=== PATIENT | male | born 1960 | race Caucasian/White ===

== ENCOUNTER 2018-01-21 12:10 | Inpatient (IN) | payer MEDICAID ==
[2018-01-21] MEDS ORDERED: Sodium Chloride 0.9% 1,000 ML IV ONE (12:23)
--- NOTE | 2018-01-21 12:23 | ED Physician Chart ---
ED Chief Complaint/HPI - Patient Information Date Seen:: 01/21/18 Time Seen:: 12:10 Chief Complaint:: G-Tube Dysfunction History of Present Illness:: onset x one day of G-Tube Dysfunction; no report of trauma, H/As, S/T, neck pain , C/P, SOB, Abd. Pain, A/N/V/D/C, fever, chills, or urinary s/s Historian:: Patient, EMS Review:: Nurse's Note Reviewed, Old Chart Reviewed, EMS run form Reviewed ED Review of Systems - Review of Systems General/Constitutional: No fever, No chills, No weight loss, Weakness, No diaphoresis, No edema, No loss of appetite Skin: No skin lesions, No rash, No bruising Head: No headache, No light-headedness Eyes: No loss of vision, No pain, No diplopia ENT: No earache, No nasal drainage, No sore throat, No tinnitus Neck: No neck pain, No swelling, No thyromegaly, No stiffness, No mass noted Cardio Vascular: No chest pain, No palpitations, No PND, No orthopnea, No edema Pulmonary: No SOB, No cough, No sputum, No wheezing GI: No nausea, No vomiting, No diarrhea, No pain, No melena, No hematochezia, No constipation, No hematemesis G/U: No dysuria, No frequency, No hematuria, No nacturia Musculoskeletal: No bone or joint pain, No back pain, No muscle pain Endocrine: Polyuria, Polydipsia Psychiatric: No prior psych history, No depression, No anxiety, No suicidal ideation, No homicidal ideation, No auditory hallucination, No visual hallucination Hematopoietic: No bruising, No lymphadenopathy Allergic/Immuno: No urticaria, No angioedema Neurological: No syncope, No focal symptoms, No weakness, No paresthesia, No headache, No seizure, No dizziness, No confusion, No vertigo ED Past Medical History - Past Medical History Obtainable: Yes Past Medical History: HTN, DM, CVA/TIA, Dyslipidemia, PUD/GERD Family History: Diabetes Melitus, HTN Social History: Non Smoker, No Alcohol, No Drug Use, Single, Care Facility Surgical History: PEG/GTube Psychiatricy History: None Medication: Reviewed Family Medical History - Family Member Mother History Unknown: Yes ED Physical Exam - Physical Examination General/Constitutional: Awake, Well-developed, well-nourished, Alert, No distress, GCS 15, Non-toxic appearing, Ambulatory Head: Atraumatic Eyes: Lids, conjuctiva normal, PERRL, EOMI Skin: Nl inspection, No rash, No skin lesions, No ecchymosis, Well hydrated, No lymphadenopathy ENMT: External ears, nose nl, TM canals nl, Nasal exam nl, Lips, teeth, gums nl , Oropharynx nl, Tonsils nl Neck: Nontender, Full ROM w/o pain, No JVD, No nuchal rigidity, No bruit, No mass, No stridor Respiratory: Nl effort/Exclusion, Clear to Auscultation, No Wheeze/Rhonchi/Rales Cardio Vascular: RRR, No murmur, gallop, rubs, NL S1 S2, Carotid/Femoral/Distal pulses equal bilaterally GI: No tenderness/rebounding/guarding, No organomegaly, No hernia, Normal BS's, Nondistended, No mass/bruits, No McBurney tenderness Other GI comments:: + G-Tube Dysfunction : No CVA tenderness Extremities: No tenderness or effusion, Full ROM, normal strength in all extremities, No edema, Normal digits & nails Neuro/Psych: Alert/oriented, DTR's symmetric, Normal sensory exam, Normal motor strength, Judgement/insight normal, Mood normal, Normal gait, No focal deficits Misc: Normal back, No paraspinal tenderness ED Labs/Radiology/EKG Results - Lab Results Comments:: Na+: 132; Glucose: 266 ED Septic Shock - . Is Septic Shock (SBP<90, OR Lactate>4 mmol\L) present?: No ED Reassessment (Disposition) - Diagnosis Diagnosis:: G-Tube Dysfunction; Hyperglycemia; Hyponatremia; DM - Aftercare/Follow up Instructions Aftercare/Follow-Up Instructions:: Counseled pt regarding lab results/diagnosis & need follow up, Counseled pt & family regarding lab results/diagnosis & need follow up - Patient Disposition Discharge/Transfer:: Acute Care w/in this hosp Accepting Physician:: Dr. Valencia Time Called:: 1400 Time Responded:: 14:00 Admitted to:: Med/Surg Spoke to:: Dr. Valencia Admitting Medical Physician:: Dr. Valencia Condition at Disposition:: Stable, Improved
[2018-01-21 12:45] LABS: % BASOPHILS 0.6 % (0.0-2.0); % EOSINOPHILS 1.4 % (0.0-5.0); % LYMPHOCYTES 18.6 % (20.0-50.0); % NEUTROPHILS 74.4 % (40.0-80.0); BASOPHILE ABSOLUTE 0.1 Th/cumm (0-0.2); EOSINOPHILE ABSOLUTE 0.1 Th/cmm (0.1-0.4); HEMATOCRIT 45.7 % (41.0-60); HEMOGLOBIN 15.2 gm/dL (12-16); LYMPHOCYTE ABSOLUTE 1.7 Th/cmm (1.5-3.0); MEAN CORPUSCULAR HEMOGLOBIN 29.7 pg (26.0-30.0); MEAN CORPUSCULAR HGB CONC 33.4 pg (28.0-36.0); MEAN PLATELET VOLUME 8.4 fl; MONOCYTE ABSOLUTE 0.4 Th/cmm (0.3-1.0); NEUTROPHILE ABSOLUTE 6.6 Th/cmm (1.8-8.0); PLATELET COUNT 182 Th/cmm (150-400); RED BLOOD COUNT 5.14 Mil/cmm (4.30-5.70); RED CELL DISTRIBUTION WIDTH 11.9 % (11.5-20.0); WHITE BLOOD COUNT 8.9 Th/cmm (4.8-10.8)
[2018-01-21 13:07] LABS: ALB/GLOB RATIO 1.1 (1.0-1.8); ALBUMIN 3.8 gm/dL (4.2-5.5); ALKALINE PHOSPHATASE 109 U/L (34-104); AMYLASE SERUM 48 U/L (29-103); ANION GAP 12.7 (7.0-16.0); BILIRUBIN,TOTAL 0.3 mg/dL (0.3-1.0); BUN - UREA NITROGEN 10 mg/dL (7-25); CALCIUM SERUM 8.9 mg/dL (8.6-10.3); CARBON DIOXIDE 27.3 mEq/L (21.0-31.0); CHLORIDE 96 mEq/L (98-107); CREATININE - SERUM 0.4 mg/dL (0.7-1.3); GFR AFRICAN-AMERICAN > 60.0 ml/min (>90); GFR NON AFRICAN-AMERICAN > 60.0 ml/min; GLUCOSE 266 mg/dL (70-105); LIPASE 62 U/L (11-82); SGOT 23 U/L (13-39); SGPT/ALT 60 U/L (7-52); SODIUM SERUM 132 mEq/L (136-145); TOTAL PROTEIN,SERUM 7.4 gm/dL (6.0-8.3)
[2018-01-21] MEDS ORDERED: Morphine Sulfate 2 mg/mL 1mL Syr IVP PRN (15:25)
[2018-01-21] MEDS ORDERED: Mag Sulfate 2gm/50mL Premix 2 GM/50 ML BAG IV PRN (15:25)
[2018-01-21] MEDS ORDERED: Dextrose 50% 50 mL Abboject IVP PRN (15:25)
[2018-01-21] MEDS ORDERED: D5-0.9%NS 1,000 ML IV SCH (16:24)
[2018-01-21] MEDS: INSULIN ASPART SLIDING SCALE 100 UNITS/ML UNIT SUBQ SCH ×2 (18:16→21:33)
[2018-01-21 20:13] LABS: A1C % 10.8 % (4.0-6.0)
[2018-01-22 01:18] LABS: URINE MICROSCOPIC INDICATED? YES; URINE SOURCE CLEAN C
[2018-01-22 01:20] LABS: URINE BILIRUBIN NEGATIVE (NEGATIVE); URINE BLOOD NEGATIVE (NEGATIVE); URINE GLUCOSE (UA) NEGATIVE (NEGATIVE); URINE KETONE NEGATIVE (NEGATIVE); URINE LEUKOCYTE ESTERASE NEGATIVE (NEGATIVE); URINE NITRATE NEGATIVE (NEGATIVE); URINE PH 8.5 (4.6 - 8.0); URINE PROTEIN NEGATIVE (NEGATIVE)
[2018-01-22 01:33] LABS: URINE CLARITY CLEAR (CLEAR); URINE COLOR YELLOW; URINE RBC 0-2 /hpf (0-5)
[2018-01-22 01:34] LABS: URINE BACTERIA OCCASIONAL /hpf (NONE SEEN); URINE EPITHELIAL CELLS OCCASIONAL /lpf (FEW); URINE WBC 0-2 /hpf (0-5)
[2018-01-22] MEDS: D5-0.9%NS 1,000 ML IV SCH ×2 (06:33→21:57)
--- NOTE | 2018-01-22 07:23 | Diagnostic Imaging Report ---
CHEST X-RAY: AP view INDICATION: pain COMPARISON: None FINDINGS: Increased interstitial lung markings are noted. No focal consolidation identified. Left basal atelectasis is noted. Borderline prominent heart is noted. Degenerative changes of spine are noted. IMPRESSION: Increased interstitial lung markings suggestive of chronic lung changes. No focal consolidation or evidence of shiva CHF Left basal atelectatic changes.
[2018-01-22] MEDS: INSULIN ASPART SLIDING SCALE 100 UNITS/ML UNIT SUBQ SCH ×4 (11:55→21:58)
[2018-01-22] MEDS: Morphine Sulfate 4 mg/mL 1mL Syr IVP PRN ×2 (12:01→20:50)
--- NOTE | 2018-01-22 13:12 | History & Physical ---
ADMIT DATE: 01/21/2018 CHIEF COMPLAINT: The patient pulling out G-tube. HISTORY OF PRESENT ILLNESS: The patient is a 57-year-old male. He has significant aphasia along with dysphagia due to history of CVA with right-sided hemiparesis. He pulled out his G-tube at the snf facility. He presents here for G-tube replacement. PAST MEDICAL HISTORY: Significant for dysphagia, aphasia, CVA, hypertension, diabetes, seizure disorder. SOCIAL HISTORY: No history of alcohol, tobacco, or drug abuse. FAMILY HISTORY: Noncontributory. ALLERGIES: No known drug allergies. SURGICAL HISTORY: Positive for G-tube placement. FAMILY HISTORY: Noncontributory. MEDICATIONS: The patient is currently n.p.o. He has IV medications. snf medication reviewed. REVIEW OF SYSTEMS: GENERAL: Positive for recent fatigue, but no fevers or chills. HEENT: No recent head trauma, change in vision, taste, hearing, or smell. Oral: No recent pain or discharge. NECK: No recent tracheal deviation. CARDIOVASCULAR: No recent chest pain or palpitations. SKIN: No recent rashes. PSYCHIATRIC: No history of psychosis or hallucinations. He does have history of mood disorder. NEUROLOGIC: He has history of CVA. MUSCULOSKELETAL: Positive for right-sided hemiparesis. ENDOCRINE: He has history of diabetes. NEUROLOGIC: He also has history of seizure disorder. MUSCULOSKELETAL: Positive for right-sided hemiparesis. ABDOMEN: No recent pain or distension. RESPIRATORY: No history of COPD or asthma. PHYSICAL EXAMINATION: VITAL SIGNS: Temperature 96.7 degrees, heart rate is 72, respiration is 18, blood pressure 136/78. Currently, no pain. GENERAL: No acute distress, awake, not alert. HEENT: No acute issues. NECK: Trachea is midline. CARDIOVASCULAR: Regular rate and rhythm. ABDOMEN: Nontender, nondistended. EXTREMITIES: No edema. SKIN: No rashes. PSYCHIATRIC: No psychosis or hallucination. NEUROLOGIC: He has right-sided hemiparesis. RESPIRATORY: Decreased breath sounds bilaterally. LABORATORY DATA: White count is 8.9, hemoglobin is 15.2, platelet count 182,000. Sodium 132, potassium 4.0, chloride 96, bicarbonate 27.3, BUN 10, creatinine 0.4. Hemoglobin A1c is 10.8. The patient's chest x-ray report shows chronic lung changes. ASSESSMENT/PLAN: 1. G-tube malfunction. 2. Dysphagia. 3. Cerebrovascular accident with right-sided hemiparesis. 4. Hypertension. 5. Diabetes mellitus, out of control. 6. Seizure disorder. 7. Hyponatremia. PLAN: Continue IV fluids. The patient is n.p.o. GI has been consulted. I will do swallow evaluation as well. Continue fingerstick blood sugars and regular insulin sliding scale. Most of the labs are stable. Continue pain control as well. JOB# [id number]
--- NOTE | 2018-01-23 02:50 | Consultation ---
DATE OF CONSULTATION: 01/22/2018 REASON FOR CONSULTATION: Dysphagia and malfunctioning G-tube. HISTORY OF PRESENT ILLNESS: This consult was obtained through the courtesy of Dr. Valencia for this 57-year-old with history of dysphagia, presenting with malfunctioning G-tube. GI consult was called in for further evaluation. The patient is not able to provide any history. It seems he has some stroke or some injury. He has evidence of previous tracheostomy. He is not eating. He is not talking, but he is communicating and he was responsive. PAST MEDICAL HISTORY: Hypertension, diabetes, CVA, hyperlipidemia, peptic ulcer disease. PAST SURGICAL HISTORY: History of tracheostomy. SOCIAL HISTORY: At this time, the patient is nonsmoker, nonalcoholic or IV drug abuser. FAMILY HISTORY: Noncontributory. ALLERGIES: No known drug allergy. MEDICATIONS: The patient is on NovoLog subcutaneously, lorazepam, mag sulfate, morphine, Zofran. REVIEW OF SYSTEMS: Unobtainable. PHYSICAL EXAMINATION: GENERAL: The patient is awake, responsive. VITAL SIGNS: Blood pressure is 133/74, heart rate 80, respiratory rate 17, temperature is 98.2. HEAD AND NECK: Pupils reactive to light. Extraocular muscles could not be tested. Oral cavity, no lesion. NECK: There is a scar of tracheostomy. CHEST: Good air entry. LUNGS: Clear to auscultation. CARDIOVASCULAR SYSTEM: Regular rate and rhythm. No murmur or gallop. ABDOMEN: Soft, positive bowel sound. There is a G-tube which , but it is about an inch in length or inch and half very tight to the skin. Bowel sounds are present. EXTREMITIES: Lower extremities, no edema. CENTRAL NERVOUS SYSTEM: Unable to evaluate, but the patient is moving 4 extremities. LABORATORY DATA: CBC unremarkable. Glucose 266. Hemoglobin A1c is 10.8, AST normal, ALT 6, alkaline phosphatase 109. IMPRESSION: A 57-year-old with dysphagia and malfunctioning G-tube. ASSESSMENT AND PLAN: 1. Malfunctioning G-tube. I removed the old tube by traction method. We placed a new one size 20. It was tested. It was inserted through the same place. Balloon was inflated. Water was infused to the stomach aspirating it back with gastric juice documenting as good position. 2. Dysphagia. We will start tube feeding and then further recommendations to follow. 3. Diabetes, needs further management. All of the other issues such as diabetes, hypertension, CVA, etc. as per PCP. Thank you, Dr. Valencia, for allowing me to participate in the care of the patient. If you have any further questions, please let me know. JOB# [id number]
--- NOTE | 2018-01-23 06:51 | Discharge Summary ---
DATE OF DISCHARGE: ADMITTING DIAGNOSES: Gastric tube malfunction, dysphagia, cerebrovascular accident with right-sided hemiparesis, hypertension, diabetes out of control, seizure disorder, hyponatremia. DISCHARGE DIAGNOSES: Gastric tube malfunction, status post gastric tube placement, dysphagia, cerebrovascular accident with right-sided hemiparesis, hypertension, diabetes out of control, seizure disorder, hyponatremia. The patient presented from ____ [facility] with a complaint of G-tube malfunction. HOSPITAL COURSE: The patient was admitted to Med/Surg. GI was consulted. Dr. Lehman placed a G-tube without complication. The patient tolerated the procedure well. The imaging revealed that the G-tube was in its proper positioning. The G-tube feeding was restarted at that time. The patient tolerated the G-tube feeding well and can be discharged back to [facility]. Medications were reviewed and reconciled. Vital signs 97.1, 86, 124/67 and 98 degrees. COMPLICATIONS: None. PROCEDURE: G-tube removal and placement. DISPOSITION: Stable over [place]. FOLLOWUP: With Dr. Loo within 3 days of discharge. JOB# [id number]
[2018-01-23] MEDS: INSULIN ASPART SLIDING SCALE 100 UNITS/ML UNIT SUBQ SCH ×2 (08:56→12:11)
[2018-01-23] MEDS: D5-0.9%NS 1,000 ML IV SCH (09:05)
== END 2018-01-23 16:30 | DRG 252 ==
LOC: ER 12:10 → MSI 14:31 → TELE 01-22 00:54 → MSI 01-22 06:49
PROVIDERS: ADMIT General Practice; ATTEND General Practice
PROC: 0D20X0Z Change Drainage Device in Upper Intestinal Tract, External Approach (ICD-10-PCS; principal; 2018-01-22)
DX: K94.23 Gastrostomy malfunction (principal); E11.65 Type 2 diabetes mellitus with hyperglycemia; R13.10 Dysphagia, unspecified; E87.1 Hypo-osmolality and hyponatremia; I69.351 Hemiplegia and hemiparesis following cerebral infarction affecting right dominant side; I10 Essential (primary) hypertension; G40.909 Epilepsy, unspecified, not intractable, without status epilepticus; Z66 Do not resuscitate; Y84.8 Other medical procedures as the cause of abnormal reaction of the patient, or of later complication, without mention of misadventure at the time of the procedure; Y82.8 Other medical devices associated with adverse incidents; E78.5 Hyperlipidemia, unspecified; K21.9 Gastro-esophageal reflux disease without esophagitis; Z83.3 Family history of diabetes mellitus; Z82.49 Family history of ischemic heart disease and other diseases of the circulatory system; Z87.11 Personal history of peptic ulcer disease
CPT/HCPCS: 36415-UA; 71045-TC; 80053-TC; 81001-TC; 82150-TC; 82948-90; 83036-90; 83690-TC; 85025-TC; A4217; J1815; J7030; J7042; Z7610